=== PATIENT | female | born 1990 | race Caucasian/White ===

== ENCOUNTER 2018-05-13 11:27 | Emergency (ER) | payer SELFPAY ==
[2018-05-13] MEDS ORDERED: Pantoprazole IV* 40 MG IV ONE (13:57)
[2018-05-13] MEDS ORDERED: Ondansetron INJ* 2 MG/ML VIAL IV ONE (13:57)
--- NOTE | 2018-05-13 14:03 | ED ---
Abdominal Pain/Female - HPI Summary HPI Summary: The pt is a 28 y/o female presenting to [facility] c/o of abd pain since 2 weeks ago worsened today. She notes nausea, vomiting and diarrhea (resolved) , loss of appetite but denies constipation. The constant pain is rated 6/10 in severity and is aggravated by eating. The sx are similar to when she had a cholecystectomy years ago. - History of Current Complaint Chief Complaint: EDAbdPain Stated Complaint: VOMITING/ABD PAIN Time Seen by Provider: 05/13/18 13:50 Hx Obtained From: Patient Hx Last Menstrual Period: Unknown - pt has an IUD Onset/Duration: Lasting Weeks - 2 weeks, Still Present, Worse Since - Today morning Timing: Constant Severity Currently: Moderate Pain Intensity: 6 Pain Scale Used: 0-10 Numeric Location: Discrete At: RUQ, Discrete At: LUQ, Epigastric Aggravating Factor(s): Food Alleviating Factor(s): Nothing Associated Signs and Symptoms: Positive: Decreased Appetite, Nausea, Vomiting, Diarrhea. Negative: Constipation Simlar Episode/Dx as:: After a cholecystectomy Allergies/Adverse Reactions: Allergies Allergy/AdvReac Type Severity Reaction Status Date / Time latex Allergy Hives Verified 05/13/18 11:30 PMH/Surg Hx/FS Hx/Imm Hx Previously Healthy: Yes Endocrine/Hematology History: Denies: Hx Diabetes Cardiovascular History: Denies: Hx Hypertension Respiratory History: Denies: Hx Asthma History: Denies: Hx Renal Disease Sensory History: Denies: Hx Deafness Opthamlomology History: Denies: Hx Legally Blind - Cancer History Cancer Type, Location and Year: None reported - Surgical History Surgery Procedure, Year, and Place: Cholecystectomy Infectious Disease History: No Infectious Disease History: Denies: Traveled Outside the [place] in Last 30 Days - Family History Known Family History: Positive: Other - Colon CA- mother Negative: Cardiac Disease, Hypertension, Diabetes - Social History Occupation: Employed Full-time Lives: With Family Review of Systems Constitutional: Other - Positive: Loss of appetite Gastrointestinal: Negative - Constipation Positive: Abdominal Pain, Vomiting, Diarrhea, Nausea All Other Systems Reviewed And Are Negative: Yes Physical Exam - Summary Physical Exam Summary: Appearance: The patient is well-nourished in no acute distress and in no acute pain. Skin: The skin is warm and dry and skin color reflects adequate perfusion. HEENT: The head is normocephalic and atraumatic. The pupils are equal and reactive. The conjunctivae are clear and without drainage. Nares are patent and without drainage. Mouth reveals moist mucous membranes and the throat is without erythema and exudate. The external ears are intact. The ear canals are patent and without drainage. The tympanic membranes are intact. Neck: The neck is supple with full range of motion and non-tender. There are no carotid bruits. There is no neck vein distension. Respiratory: Chest is non-tender. Lungs are clear to auscultation and breath sounds are symmetrical and equal. Cardiovascular: Heart is regular rate and rhythm. There is no murmur or rub auscultated. There is no peripheral edema and pulses are symmetrical and equal. Abdomen: The abdomen is soft with tenderness to palpation in the epigastric and the bilateral upper quadrants. There are normal bowel sounds heard in all four quadrants and there is no organomegaly palpated. Musculoskeletal: There is no back tenderness noted. Extremities are non-tender with full range of motion. There is good capillary refill. There is no peripheral edema or calf tenderness elicited. Neurological: Patient is alert and oriented to person, place and time. The patient has symmetrical motor strength in all four extremities. Cranial nerves are grossly intact. Deep tendon reflexes are symmetrical and equal in all four extremities. Psychiatric: The patient has an appropriate affect and does not exhibit any anxiety or depression. Triage Information Reviewed: Yes Vital Signs On Initial Exam: Initial Vitals Temp Pulse Resp BP Pulse Ox 97.7 F 94 18 126/88 96 05/13/18 11:30 05/13/18 11:30 05/13/18 11:30 05/13/18 11:30 05/13/18 11:30 Vital Signs Reviewed: Yes Diagnostics - Vital Signs Vital Signs Temp Pulse Resp BP Pulse Ox 05/13/18 13:13 98.3 F 71 14 126/78 99 05/13/18 11:30 97.7 F 94 18 126/88 96 - Laboratory Result Diagrams: 05/13/18 14:07 05/13/18 14:07 Lab Statement: Any lab studies that have been ordered have been reviewed, and results considered in the medical decision making process. Re-Evaluation - Re-Evaluation First Eval Re-Evaluation Time: 16:33 Change: Improved Comment: The pt is ready to go home. Abdominal Pain Fem Course/Dx - Course Course Of Treatment: Ms. Bills presented with a couple of weeks of epigastric pain that was worsened with eating. She had diffuse epigastric and upper quadrant tenderness on exam. Her vitals were stable, she was nontoxic in appearance and her labs were within normal limits. She did improve significantly with sucralfate. I'm going treat her with sucralfate for a few days and get her follow up with GI. This is likely a gastritis versus ulcer etc. - Diagnoses Provider Diagnoses: Epigastric abdominal pain Discharge - Sign-Out/Discharge Documenting (check all that apply): Patient Departure - DC - Discharge Plan Condition: Improved Disposition: HOME Prescriptions: Sucralfate SUSP 1 gm PO QID ACHS #200 ml Patient Education Materials: Epigastric Pain (ED) Forms: *Work Release Referrals: [place] GIBSON,Erasmo Henderson [Primary Care Provider] - 2 Days Angelito An MD [Medical Doctor] - As Soon As Possible Additional Instructions: Follow up with the energy efficiency finance manager as soon as possible Return to ED for any new or worsening symptoms - Billing Disposition and Condition Condition: IMPROVED Disposition: Home - Attestation Statements Document Initiated by Scribe: Yes Documenting Scribe: Deann Stark Provider For Whom Scribe is Documenting (Include Credential): Dr. Bereket Hidalgo MD Scribe Attestation: Deann Yi scribed for Dr. Bereket Hidalgo MD on 05/14/18 at 1210. Scribe Documentation Reviewed: Yes Provider Attestation: The documentation as recorded by the scribeDeann accurately reflects the service I personally performed and the decisions made by me, Dr. Bereket Hidalgo MD
[2018-05-13 14:28] LABS: ABS Basophils 0 10^3/ul (0-0.2); ABS Eosinophils 0.1 10^3/ul (0-0.6); ABS Lymphocytes 2.4 10^3/ul (1.0-4.8); ABS Monocytes 0.6 10^3/ul (0-0.8); ABS Neutrophils 5.3 10^3/ul (1.5-7.7); ABS Nucleated RBC 0 10^3/ul; Eosinophil % 0.6 % (0-6); Hematocrit 42 % (35-47); Hemoglobin 14.2 g/dl (12.0-16.0); Lymphocyte % 28.4 % (25-47); Mean Corpuscular HGB Conc 34 g/dl (31-36); Mean Corpuscular Hemoglobin 29 pg (27-31); Mean Corpuscular Volume 87 fL (80-97); Mean Platelet Volume 6.9 um3 (7.4-10.4); Nucleated Red Blood Cells % 0.4; Platelet Count 285 10^3/ul (150-450); Red Blood Count 4.87 10^6/ul (4.00-5.40); Red Cell Distribution Width 15 % (10.5-15); White Blood Count 8.3 10^3/ul (3.5-10.8)
[2018-05-13] MEDS ORDERED: Ondansetron ODT TAB* 4 MG PO ONE (14:45)
[2018-05-13] MEDS ORDERED: Sucralfate TAB* 1 GM PO ONE (14:45)
[2018-05-13 15:01] LABS: EGFR Non-African American 104.6 (>60)
[2018-05-13 17:12] VITALS: BP 108/58
== END 2018-05-13 17:10 | disposition home or self-care (01) ==
LOC: ED 11:27
DX: R10.13 Epigastric pain (principal); R10.11 Right upper quadrant pain; R10.12 Left upper quadrant pain; R11.2 Nausea with vomiting, unspecified; R19.7 Diarrhea, unspecified; Z90.49 Acquired absence of other specified parts of digestive tract; Z91.040 Latex allergy status
CPT/HCPCS: 36415; 80053; 83605; 83690; 84702; 85025; 86140; 99283; A9270-GY; J2405

== ENCOUNTER 2018-06-11 11:03 | Emergency (ER) | payer MEDICAID ==
[2018-06-11] MEDS ORDERED: Ondansetron INJ* 2 MG/ML VIAL IV ONE (12:11)
[2018-06-11] MEDS ORDERED: Morphine VIAL* 4 MG/ML VIAL (1 ml vial) IV ONE (12:11)
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
[2018-06-11 12:29] LABS: ABS Basophils 0 10^3/ul (0-0.2); ABS Eosinophils 0.1 10^3/ul (0-0.6); ABS Lymphocytes 2.4 10^3/ul (1.0-4.8); ABS Monocytes 0.7 10^3/ul (0-0.8); ABS Neutrophils 6.3 10^3/ul (1.5-7.7); ABS Nucleated RBC 0.1 10^3/ul; Eosinophil % 0.6 % (0-6); Hematocrit 44 % (35-47); Hemoglobin 14.6 g/dl (12.0-16.0); Lymphocyte % 25.2 % (25-47); Mean Corpuscular HGB Conc 34 g/dl (31-36); Mean Corpuscular Hemoglobin 29 pg (27-31); Mean Corpuscular Volume 87 fL (80-97); Mean Platelet Volume 6.6 fL (7.4-10.4); Nucleated Red Blood Cells % 0.6; Platelet Count 285 10^3/ul (150-450); Red Cell Distribution Width 15 % (10.5-15); White Blood Count 9.4 10^3/ul (3.5-10.8)
[2018-06-11 12:38] LABS: INR 0.93 (0.77-1.02)
[2018-06-11 12:50] LABS: EGFR Non-African American 102.8 (>60)
[2018-06-11] MEDS ORDERED: Iohexol 300* (CONTRAST) 10 ML SDV IV ONE (13:13)
[2018-06-11 13:59] VITALS: BP 117/70
[2018-06-11 14:28] LABS: Urine Appearance Clear; Urine Blood Negative (Negative); Urine Color Yellow; Urine Ketones Negative (Negative); Urine Protein Negative (Negative); Urine Specific Gravity 1.015 (1.010-1.030); Urine Urobilinogen Negative (Negative)
== END 2018-06-11 15:31 | disposition home or self-care (01) ==
LOC: ED 11:03
DX: R10.32 Left lower quadrant pain (principal); F17.200 Nicotine dependence, unspecified, uncomplicated
CPT/HCPCS: 36415; 74177; 80053; 81003; 82607; 83540; 83550; 83605; 83690; 83735; 84702; 85025; 85610; 85652; 85730; 86140; 96374; 96375; 99283; J2270; J2405; Q9967